=== PATIENT | male | born 1980 | race Caucasian/White ===

== ENCOUNTER 2021-09-29 18:43 | Emergency (ER) | payer BC ==
--- NOTE | 2021-09-29 20:52 | EDM.PDOC ---
ED HPI GENERAL MEDICAL PROBLEM - General Chief Complaint: Lower Extremity Injury/Pain Stated Complaint: SWOLLEN LT LEG Time Seen by Provider: 09/29/21 19:45 Source of Information: Reports: Patient History Limitations: Reports: No Limitations - History of Present Illness INITIAL COMMENTS - FREE TEXT/NARRATIVE: Patient is a 41-year-old male with a past medical history of drug abuse and is currently on Suboxone presenting with a chief complaint of left lower extremity pain and swelling. Patient notes he has had the pain in the anterior portion of the left leg for the past few days. He is noticed swelling to the area which is gotten increasingly worse. Patient denies any fevers, chills, weakness, chest pain, shortness of breath, nausea, vomiting. Patient denies any traumatic injuries to the left leg. 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 He states he has no prior history of DVT or PE. He did test positive for COVID-19 about 3 weeks ago. Left Lower Leg Pain Score (Numeric/FACES): 8 - Related Data Allergies Allergy/AdvReac Type Severity Reaction Status Date / Time No Known Allergies Allergy Verified 03/30/19 19:20 CDT Home Meds: Home Meds Acetaminophen/HYDROcodone [[place] 325-10 MG] 1 tab PO DAILY 02/17/19 [History] Methadone 10 mg PO TID 02/17/19 [History] Metoclopramide HCl [Reglan] 10 mg PO TID PRN #10 tablet 02/17/19 [Rx] Buprenorphine HCl/Naloxone HCl [Buprenorphin-Naloxon 8-2 mg Sl] 1 tab SL TID 03/30/19 [History] Neomycin/Polymyxin B/Dexametha [Zerczr-Xnwuq-Thnixffp Eye Drop] 3 drop OP QID #1 drops.susp 03/30/19 [Rx] Past Medical History - Past Health History Medical/Surgical History: Denies Medical/Surgical History HEENT History: Reports: None Cardiovascular History: Reports: None Respiratory History: Reports: None Gastrointestinal History: Reports: None Genitourinary History: Reports: None Musculoskeletal History: Reports: None Neurological History: Reports: None Psychiatric History: Reports: None Endocrine/Metabolic History: Reports: None Hematologic History: Reports: None Immunologic History: Reports: None Oncologic (Cancer) History: Reports: None Dermatologic History: Reports: None - Infectious Disease History Infectious Disease History: Reports: None - Past Surgical History Head Surgeries/Procedures: Reports: None Musculoskeletal Surgical History: Reports: Other (See Below) Other Musculoskeletal Surgeries/Procedures:: chronic hip pain Social & Family History - Family History Family Medical History: No Pertinent Family History - Caffeine Use Caffeine Use: Reports: Energy Drinks Review of Systems - Review of Systems Review Of Systems: See Below Constitutional: Denies: Fever Respiratory: Denies: Shortness of Breath, Pleuritic Chest Pain Cardiovascular: Denies: Chest Pain, Lightheadedness, Syncope GI/Abdominal: Denies: Abdominal Pain, Diarrhea, Nausea, Vomiting Musculoskeletal: Denies: Neck Pain, Muscle Stiffness Skin: Reports: Rash, Erythema Neurological: Denies: Dizziness, Headache ED EXAM, GENERAL - Physical Exam Exam: See Below Free Text/Narrative:: I have reviewed the triage vital signs Const: Well nourished, well developed, appears stated age Eyes: no conjunctival injection HENT: No signs of trauma or swelling, Neck supple without meningismus CV: Regular Rate Rhythm, Warm, well-perfused extremities RESP: Unlabored respiratory effort GI: soft, non-tender, non-distended, no masses MSK: No gross deformities appreciated Skin: Left lower extremity demonstrates erythema over the anterior left leg. There are some slight edema noted with this as well. It is warm to the touch. There is no calf tenderness. No crepitus noticed. Distal pulses are appropriate. Neuro: Alert, mill worker II-XII grossly intact. Sensation and motor function of extremities grossly intact. Psych: Appropriate mood and affect. Course - Vital Signs Last Recorded V/S: Last Vital Signs Temp 37.9 C 09/29/21 19:08 Pulse 108 H 09/29/21 19:08 Resp 16 09/29/21 19:08 BP 132/82 09/29/21 19:08 Pulse Ox 98 09/29/21 19:08 - Orders/Labs/Meds Labs: Laboratory Tests 09/29/21 09/29/21 09/29/21 Range/Units 20:10 20:10 20:10 WBC 9.62 H (4.23-9.07) K/mm3 RBC 3.90 L (4.63-6.08) M/mm3 Hgb 12.0 L (13.7-17.5) gm/dl Hct 36.2 L (40.1-51.0) % MCV 92.8 H (79.0-92.2) fl MCH 30.8 (25.7-32.2) pg MCHC 33.1 (32.2-35.5) g/dl RDW Std Deviation 43.1 (35.1-43.9) fL Plt Count 203 (163-337) K/mm3 MPV 8.8 L (9.4-12.3) fl Neut % (Auto) 75.0 H (34.0-67.9) % Lymph % (Auto) 15.4 L (21.8-53.1) % [place] % (Auto) 9.1 (5.3-12.2) % Eos % (Auto) 0.3 L (0.8-7.0) Baso % (Auto) 0.1 (0.1-1.2) % Neut # (Auto) 7.21 H (1.78-5.38) K/mm3 Lymph # (Auto) 1.48 (1.32-3.57) K/mm3 [place] # (Auto) 0.88 H (0.30-0.82) K/mm3 Eos # (Auto) 0.03 L (0.04-0.54) K/mm3 Baso # (Auto) 0.01 (0.01-0.08) K/mm3 PT 10.4 (9.7-12.0) SECONDS INR 0.93 D-Dimer, Quantitative 0.46 (0.19-0.50) mg/L Sodium 136 (136-145) mEq/L Potassium 3.8 (3.5-5.1) mEq/L Chloride 102 (98-107) mEq/L Carbon Dioxide 25 (21-32) mEq/L Anion Gap 12.8 (5-15) BUN 16 (7-18) mg/dL Creatinine 0.8 (0.7-1.3) mg/dL Est Cr Clr Drug Dosing 125.47 mL/min Estimated GFR (MDRD) > 60 (>60) mL/min BUN/Creatinine Ratio 20.0 H (14-18) Glucose 96 (70-99) mg/dL Lactic Acid (0.4-2.0) mmol/L Calcium 8.1 L (8.5-10.1) mg/dL Total Bilirubin 0.7 (0.2-1.0) mg/dL AST 13 L (15-37) U/L ALT 19 (16-63) U/L Alkaline Phosphatase 44 L (46-116) U/L Total Protein 6.3 L (6.4-8.2) g/dl Albumin 3.8 (3.4-5.0) g/dl Globulin 2.5 gm/dL Albumin/Globulin Ratio 1.5 (1-2) // Range/Units 20:10 WBC (4.23-9.07) K/mm3 RBC (4.63-6.08) M/mm3 Hgb (13.7-17.5) gm/dl Hct (40.1-51.0) % MCV (79.0-92.2) fl MCH (25.7-32.2) pg MCHC (32.2-35.5) g/dl RDW Std Deviation (35.1-43.9) fL Plt Count (163-337) K/mm3 MPV (9.4-12.3) fl Neut % (Auto) (34.0-67.9) % Lymph % (Auto) (21.8-53.1) % [place] % (Auto) (5.3-12.2) % Eos % (Auto) (0.8-7.0) Baso % (Auto) (0.1-1.2) % Neut # (Auto) (1.78-5.38) K/mm3 Lymph # (Auto) (1.32-3.57) K/mm3 [place] # (Auto) (0.30-0.82) K/mm3 Eos # (Auto) (0.04-0.54) K/mm3 Baso # (Auto) (0.01-0.08) K/mm3 PT (9.7-12.0) SECONDS INR D-Dimer, Quantitative (0.19-0.50) mg/L Sodium (136-145) mEq/L Potassium (3.5-5.1) mEq/L Chloride (98-107) mEq/L Carbon Dioxide (21-32) mEq/L Anion Gap (5-15) BUN (7-18) mg/dL Creatinine (0.7-1.3) mg/dL Est Cr Clr Drug Dosing mL/min Estimated GFR (MDRD) (>60) mL/min BUN/Creatinine Ratio (14-18) Glucose (70-99) mg/dL Lactic Acid 0.4 (0.4-2.0) mmol/L Calcium (8.5-10.1) mg/dL Total Bilirubin (0.2-1.0) mg/dL AST (15-37) U/L ALT (16-63) U/L Alkaline Phosphatase (46-116) U/L Total Protein (6.4-8.2) g/dl Albumin (3.4-5.0) g/dl Globulin gm/dL Albumin/Globulin Ratio (1-2) Departure - Departure Time of Disposition: 20:49 Disposition: Home, Self-Care 01 Clinical Impression: Cellulitis of left leg without foot - Discharge Information Referrals: PCP,None [Primary Care Provider] - Additional Instructions: Please elevate the leg when you are at home. Take antibiotics as directed. Return to the emergency room for difficulty breathing, worsening of pain after being on antibiotics for 48 hours or if you have any other emergent concerns. Sepsis Event Note (ED) - Evaluation Sepsis Screening Result: No Definite Risk - Focused Exam Vital Signs: Vital Signs Temp Pulse Resp BP Pulse Ox 09/29/21 19:08 37.9 C 108 H 16 132/82 98 - Assessment/Plan Assessment:: Patient is a 41-year-old male presenting to the emergency room with left lower extremity pain and swelling. Differential diagnosis considered for this patient include DVT, CHF, cellulitis, necrotizing infection. Laboratory studies were obtained. No significant abnormalities were noted. No evidence of sepsis. D- dimer is negative and DVT has been be ruled out. Patient be started on antibiotics and discharged home.
[2021-09-29] MEDS ORDERED: Cephalexin 500 MG Cap PO ONE (20:53)
[2021-09-29] MEDS ORDERED: Sulfamethoxazole/Trimethoprim 800-160 MG Tab PO ONE (20:55)
== END 2021-09-29 21:17 | disposition home or self-care (01) ==
LOC: JD.ED 18:43
DX: L03.116 Cellulitis of left lower limb (principal)
CPT/HCPCS: 36415; 80053; 83605; 85025; 85379; 85610; 99283; A9270